=== PATIENT | male | born 1970 | race African-American/Black ===

== ENCOUNTER 2017-04-19 08:58 | Emergency (ER) | payer OTHER ==
[2017-04-19 09:10] VITALS: BP 140/90; PULSE 66; TEMP 98.8; BMI 34.1
[2017-04-19] MEDS ORDERED: IBUPROFEN 600 MG TABLET (FP) PO ONE ×2 (09:36→09:52)
[2017-04-19] MEDS ORDERED: DIPHTH,PERTUSS(ACELL),TET VAC 0.5 ML VIAL IM ONE (09:37)
[2017-04-19] MEDS ORDERED: CEPHALEXIN MONOHYDRATE 500 MG CAPSULE (UD) PO ONE (09:39)
--- NOTE | 2017-04-19 09:42 | PDOC ---
History of Present Illness - General Chief Complaint: Laceration Stated Complaint: laceration to left hand with a saw Time Seen by Provider: 04/19/17 09:01 History Source: Patient Exam Limitations: No Limitations - History of Present Illness Initial Comments: 46 yo M no PMH presents with L hand pain after he was injured by a nail gun at work. He states that someone took the nail out for him, but he is having pain to the hand. The nail went into the base of his thumb. No active bleeding. No numbness or weakness. He c/o mild swelling, pain on movement of the thumb. No other injuries. Cannot recall his last tetanus booster. Past History - Past Medical History Allergies/Adverse Reactions: Allergies Allergy/AdvReac Type Severity Reaction Status Date / Time No Known Allergies Allergy Verified 04/19/17 09:01 Home Medications: Ambulatory Orders NK [No Known Home Medication] 04/19/17 Other medical history: pt denies - Psycho/Social/Smoking Cessation Hx Anxiety: No Suicidal Ideation: No Smoking History: Never smoked Information on smoking cessation initiated: No Hx Alcohol Use: No Drug/Substance Use Hx: No Substance Use Type: None Review of Systems - Review of Systems Able to Perform ROS?: Yes Comments:: GENERAL/CONSTITUTIONAL: No fever or chills. No weakness. MUSCULOSKELETAL: No joint or muscle swelling or pain. No neck or back pain. SKIN: No rash. +Puncture wound to L hand. NEUROLOGIC: No headache, vertigo, loss of consciousness, or change in strength/ sensation. ENDOCRINE: No increased thirst. No abnormal weight change. HEMATOLOGIC/LYMPHATIC: No anemia, easy bleeding, or history of blood clots. ALLERGIC/IMMUNOLOGIC: No hives or skin allergy. *Physical Exam - Vital Signs Last Vital Signs Temp Pulse Resp BP Pulse Ox 98.8 F 66 18 140/90 99 04/19/17 09:00 04/19/17 09:00 04/19/17 09:00 04/19/17 09:00 04/19/17 09:00 - Physical Exam Comments: GENERAL: Awake, alert, and fully oriented, in no acute distress HEAD: No signs of trauma EXTREMITIES: Normal range of motion, no edema. No clubbing or cyanosis. No cords , erythema, or tenderness NEUROLOGICAL: Cranial nerves II through XII grossly intact. Normal speech, normal gait SKIN: Warm, Dry, normal turgor. +Puncture wound at the base of the L thumb. No active bleeding, no erythema. +Mild swelling. *DC/Admit/Observation/Transfer Diagnosis at time of Disposition: Injury of hand by nail gun Qualifiers: Encounter type: initial encounter Laterality: left Qualified Code(s): S69.92XA - Unspecified injury of left wrist, hand and finger(s), initial encounter - Discharge Dispostion Disposition: HOME Condition at time of disposition: Stable Admit: No
[2017-04-19] MEDS ORDERED: CEPHALEXIN MONOHYDRATE 500 MG CAPSULE (UD) ONE (09:52)
== END 2017-04-19 10:36 | disposition home or self-care (01) ==
LOC: FER 08:58
PROC: 3E0234Z Introduction of Serum, Toxoid and Vaccine into Muscle, Percutaneous Approach (ICD-10-PCS; principal; 2017-04-19)
DX: S61.432A Puncture wound without foreign body of left hand, initial encounter (principal); W20.8XXA Other cause of strike by thrown, projected or falling object, initial encounter; Y93.89 Activity, other specified; Y92.9 Unspecified place or not applicable; Y99.0 Civilian activity done for income or pay
CPT/HCPCS: 73130-TC-LT; 99282-25